=== PATIENT | male | born 1975 | race Caucasian/White ===

== ENCOUNTER 2023-06-06 07:36 | Day surgery (SDC) | payer SELFPAY, OTHER ==
[2023-06-06 08:01] VITALS: BP 117/78; PULSE 61; RESP 16; TEMP 36.3; O2SAT 98; BMI 34.5
[2023-06-06] MEDS: Lactated Ringers 1,000 ML 15 ML IV (08:04)
--- NOTE | 2023-06-06 08:23 | HP.PCM_ITS ---
HPI - General HPI Narrative JOE DIOP, is a 48 M who presents for Left knee arthroscopy partial medial meniscectomy possible repair. No changes to H and P, but patient did go on a new BP medication so I made Dr. Boucher aware. RAB discussed, narcotic counselling, post op protocol for most likely partial meniscectomy. FU in office 2 days. No further questions, L knee marked. OK to proceed. MR#: [id number] Acct: [id number] Name: JOE DIOP Rep #: [id number] : 1975 Provider: Dr. Gabriel Arango MD Age/Sex: 48/M Location: [facility] [place] Status: Signed Intake Vital Signs 05/21/2313:01 Height 5 ft 7 in Weight: 223 lb 8 oz BMI 34.9 Intake Visit Reasons: LEFT KNEE Is patient in pain?: Yes Pain scale (1-10): 6 Allergies No Known Allergies Allergy (Unverified 05/21/23 13:01) Medications NK 05/21/23 [History Confirmed 05/21/23] PFSH Medical History (Updated 05/21/23 @ 13:26 by Gabriel Arango MD) Left knee pain Tear of medial meniscus of left knee Social History (Updated 05/21/23 @ 13:03 by Apoorva Ribeiro) Smoking Status: Never smoker alcohol intake: never what type of physical activity do you participate in: other details: uses a boxing bag HPI LEFT KNEE Details: Parts of this documentation were recorded by a scribe, this documentation accurately reflects the service provided and the decisions made by me, Dr. Gabriel Arango MD 05/21/23 1259. JOE DIOP is a 48 year old M here today for left knee pain, medial side, 6 out of 10, stays there, no radiation, always there, worse with walking, has had 2 cortisone injections and TERRY injection back in November of this year it helped for about 6 months. No surgery. Had xrays on a disc and a MRI. Few years - getting worse. 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 Ortho Exam General General: Yes no acute distress Neurologic: Yes alert and Yes oriented x3 Psychologic: Yes reasonable and appropriate Right Knee Patella Translation: 2 Left Knee Skin/Wound: Yes CDI, No ecchymosis, No erythema and No swelling Knee ROM: Yes ROM-Flexion 0-140 Examination: Yes med jt line tenderness, No Lat jt line tenderness, No TTP inf pole patella, Yes Crepitus, Yes Pain with flexion, Yes Khari's Test, No TTP Patellar tendon, No TTP Tibial tubercle, No TTP Pes Anserine and No Illiotibial band tenderness Quad Atrophy: No Stability: NML: Anterior Drawer, NML: Letha, NML: Posterior Drawer, NML: Valgus 0, NML: Valgus 30, NML: Varus 0 and NML: Varus 30 Apprehension with Lateral Translation: No Patella Translation: 2 Patellar Tilt Normal: Yes Patella Grind: Yes KNEE: normal gait, alignment, nvi normal motor and sens to foot Supplemental Info Radiographs were reviewed from an outside source [facility] 1.5.23 as well as 1.8. overall the joint spaces appear well-maintained no acute abnormalities very early mild narrowing potentially in the medial compartment no other acute abnormalities. MRI was also reviewed left knee without contrast from [facility] November 02, 2022. I agree with radiologist interpretation 1. Posterior horn and mid body medial meniscus tears. 2. Marrow edema of the medial femoral condyle. Otherwise no visible defects of the cartilage. There is narrowing of the lateral patellofemoral joint. Coding Level of Care Code Off vis,new,level 3 Diagnoses Left knee pain M25.562 Tear of medial meniscus of left knee S83.242A Assessment and Plan Assessment and Plan (1) Left knee pain: Status: Acute Plan: 48-year-old man with continued left knee pain despite nonoperative management including 3 injections. MRI shows a medial meniscus tear well-maintained cart ilage as well as slight narrowing of the patellofemoral joint and marrow edema of the medial femoral condyle. More of the pain seems to be coming from the medial joint line rather than the distal femur. The patient can try various nonoperative means of treating this including but not limited to rest ice anti- inflammatories bracing continue nonoperative therapy physical therapy weight loss low impact exercise injections and other means. Surgical option for this can consider knee arthroscopy partial medial meniscectomy possible repair. In terms of the edema medial femoral condyle could consider adjunct therapy of subchondroplasty although for the most part if there is no collapse or irregularity of the joint surface I typically do not perform this as a first step but if he does not respond to smaller intra-articular surgery could consider that as well at a later date. Discussed the pros cons risk benefits of this and the patient would like to go ahead with left knee arthroscopy, medial meniscus partial meniscectomy possible repair. We discussed the recovery for this 1 to 2 weeks on crutches and 6 weeks to return to normal activities. If I did do a repair this would slow down the recovery up to 3 months time the patient may receive incomplete relief of the pain due to the femoral edema. He understands wishes to proceed. I will also get a preoperative clearance from his family doctor as it has been a few years. Pros and cons risks and benefits were discussed with the patient including but not limited to infection, pain, stiffness, bleeding, damage to surrounding stru ctures, neurovascular injury, recurrence or retear, failure or wear of hardware or fixation, instability, fracture, deep vein thrombosis and pulmonary embolism, anesthetic risks, , patient dissatisfaction, need for further surgery and other risks. Patient understood and wished to proceed with surgery, and signed the informed consent documentation. PENDING SALE TO [facility] Medical History (Updated 05/28/23 @ 14:30 by Vanessa Hughes) Hypertension Left knee pain Tear of medial meniscus of left knee Wears glasses Wears hearing aid Home Medications NK 05/21/23 [History Last Taken Unknown] losartan 50 mg tablet mg 06/06/23 [History Last Taken 06/06/23] Allergy/AdvReac Type Severity Reaction Status Date / Time No Known Allergies Allergy Verified 06/06/23 07:55 Surgical History (Updated 05/28/23 @ 14:30 by Vanessa Hughes) No history of previous surgery Social History (Updated 05/21/23 @ 13:03 by Apoorva Ribeiro) Smoking Status: Never smoker alcohol intake: never what type of physical activity do you participate in: other details: uses a boxing bag Vital Signs Vital Signs Vital Signs: 06/06/23 08:01 06/06/23 08:01 Temperature 97.4 F L Temperature Source Temporal Pulse Rate 61 Respiratory Rate 16 Respiratory Pattern Normal Blood Pressure 117/78 Blood Pressure Mean 91 Blood Pressure Source Monitor Blood Pressure Position Semi-Fowlers Blood Pressure Location Left Arm Pulse Ox 98 Oxygen Delivery Method Room Air Weight Weight: 220 lb 7.396 oz Body Mass Index (BMI) 34.5
[2023-06-06] MEDS: Cefazolin 2 GM in 0.9% Normal Saline 100 ML IV (08:51)
[2023-06-06] MEDS: Epinephrine (1 mg/ml) 1 MG/ML VIAL (09:02)
[2023-06-06] MEDS: Bupivacaine 0.25% 30 ML Vial (09:23)
--- NOTE | 2023-06-06 09:26 | OP.PCM_ITS ---
Problems Associated Problem List Diagnoses (1) Tear of medial meniscus of left knee: (2) Left knee pain: Report of Operation Date of Procedure: 06/06/23 Pre-Operative Diagnosis: left knee medial meniscus tear Post-Operative Diagnosis: same Surgery/Procedure Performed:: left knee arthroscopy, debridement, partial medial meniscectomy Surgeon: Gabriel Arango Type of Anesthesia: General and Local Anesthesiologist: Marco A Boucher Estimated Blood Loss (mL): 10 Description of Procedure: Patient brought to the operating room theater. Placed supine on the table. General anesthesia induced. Bony prominences padded. SCD on the nonoperative leg. Ancef 2g IV given for prophylaxis. 34 inch tourniquet applied to the left thigh appropriately padded. Stress positioner to the patient's left side. Lower extremity prepped and draped with chlorhexidine-based prep solution allowing over 3 minutes drying time prior to draping. Preoperative timeout performed to confirm the site patient and the surgery. I began by elevating the limb inflating the tourniquet to 250 mmHg. Use standard anterolateral and anteromedial arthroscopy portals. Did a full diagnostic arthroscopy. No loose bodies. Grade 1 changes mid aspect of trochlea, but otherwise patellofemoral cartilage as well as cartilage on the lateral compartment of the knee was normal, aside from 1 very small 3mm area of grade 3 fissure lateral tibia plateau. Patella sitting normally in the groove. Ligamentum mucosum debrided ACL and PCL appeared normal and stable to probing. Lateral meniscus normal appearance and stable to probing. Removed a medial sided plica. Into the medial compartment there is mild grade 1 changes on the distal femur and proximal tibia as well. Matching with the MRI there was indeed a medial meniscus tear at the mid body to slightly posterior to this. Roots were stable. This was a complex tear which included a radial component. I used shaving instrument to debride the tear to stable margins. Removed about 5% total meniscus area. There was a small peripheral rim remaining with a stable meniscus anterior and posterior to this. Small undersurface fraying at the posterior horn, again debrided gently. Pictures taken and saved throughout the case onto the system. Tourniquet let down. Hemostasis achieved. 10 cc of quarter percent bupivacaine instilled in around the portal sites. Skin cleaned with wet and dry dressing followed application of Steri-Strips Adaptic 4 x 4 gauze ABD dressings and 6 inch Benito bandage loosely wrapped. Patient woken up from the general anesthetic transferred off the operating table taken to postanesthetic care unit in stable condition. All sponge needle instru ment counts were correct no complications. Plan to the patient weightbearing as tolerated with crutches 1 to 2 weeks follow-up in the office in 2 days time. CPT? code 92354 indicates a meniscectomy in either the medial or lateral compartment Complications none Admit VTE Documentation VTE Present on Admission: No VTE Mechan Device Prophylaxis: SCD's VTE Pharm Prophylaxis ordered?: No Reason prophylaxis not ordered:: Treatment Not Indicated Procedures Musculoskeletal [id number]: Other Procedure See Report
[2023-06-06 09:30] VITALS: BP 115/72; BP 117/78; PULSE 60; RESP 16; TEMP 36.3; O2SAT 95
--- NOTE | 2023-06-06 09:30 | DCINST_ITS ---
Discharge Instructions Diet Discharge Diet: No restrictions Activity Discharge Activity: Use Crutches Ice area for (Minutes): 10 Weight Bearing Status: Weight bearing as tolerated Keep extremity elevated above heart level: Operative Extremity Additional Activity Instructions:: WBAT on crutches 1-2 weeks, ROM as tolerated Dressing / Incision Call your doctor if your incision/area has: Continuous Slow Oozing, Sudden Increased Bleeding, Increased Pain/ Swelling, Increased Redness, Foul Smelling Discharge and Swelling at the incision site Change Dressing in: leave in place till F/U Cleanse incision/area with: Do not get Incision Wet Follow Up Care Please Follow Up With: Gabriel Arango MD When: 2 days Test Results: Test results from this visit will be discussed in further detail at your follow- up appointment, if applicable. Discharge Plan Admission Attending Provider: Gabriel Arango Primary Care Provider: Kwasi Bishop Instructions Patient Instructions: After Knee Arthroscopy Discharge Orders/Prescriptions Prescriptions: New oxycodone-acetaminophen [Percocet] 5-325 mg tablet 1 tab PO Q6H MDD 6 PRN (Reason: pain) 5 Days Qty: 14 0RF No Action losartan 50 mg tablet Patient Comments: TAKE ONE TABLET BY MOUTH DAILY Referrals / Follow Up: Kwasi Bishop MD [Primary Care Provider] - Gabriel Arango MD [Med Staff - Active Staff] - Disposition Disposition (needs filled in before D/C Order can be placed): Home, Self Care
[2023-06-06 09:45] VITALS: BP 103/75; BP 117/78; PULSE 65; RESP 16; O2SAT 95
[2023-06-06 10:00] VITALS: BP 105/72; BP 117/78; PULSE 60; RESP 16; O2SAT 94
[2023-06-06 10:09] VITALS: BP 107/74; BP 117/78; PULSE 63; RESP 16; TEMP 36.3; O2SAT 95
[2023-06-06] MEDS: Oxycodone/Apap 5/325 Tablet PO (10:38)
== END 2023-06-06 11:08 | disposition home or self-care (01) ==
LOC: SDC 07:38 → AC 07:39
PROVIDERS: PCP Family Medicine; Referring Provider Orthopaedic Surgery Sports Medicine; Visit Provider Orthopaedic Surgery Sports Medicine
PROC: (CPT 29870; principal; 2023-06-06 08:50)
DX: S83.242A Other tear of medial meniscus, current injury, left knee, initial encounter (principal); I10 Essential (primary) hypertension
CPT/HCPCS: 29881; 01400; J7120; J2405

== ENCOUNTER 2023-07-17 07:00 | Outpatient (RCR) | payer SELFPAY, OTHER ==
--- NOTE | 2023-06-19 07:58 | HP.PTEVAL ---
Patient's Visit Information Visit Information Visit Information: JOE DIOP is a 48 year old M referred to Physical Therapy by Dr. Gabriel Arango MD with a diagnosis of PAIN UN LEFT KNEE. Date of Evaluation: 06/19/23 Physical Therapist: Az Noland, PT, Cert MDT, OCS Visit Plan Frequency: 1-2x /Week Duration: 4 Weeks Plan: PT INTERVTIONS ROM/FLEXABILITY KNEE ,HAMSTRINGS FLEXBLITY ,PRE'S QUADS/HAMS/HIP ,FUNCTIONAL STRENGTHENING AND BIKE /NUSTEP Subjective Subjective: This 48 y/o male presents to physical therapy with left knee partial meniscectomy. Patient underwent surgery on left knee 2 weeks at [facility] Out[facility]. Patient had knee pain for ~ 2years tried injection and gel injection. Patient had MRI showed meniscus tear.,Patient reports getting better. Patient has had showed medial knee DJD and thus pain is medial joint. Aggravating squatting /kneeling ,extended sitting to get up stairs ,extended walking. Alleviating factors rest. Prior to surgery oxycodone. Patient denies paresthesia/tingling. Sleeping good. Patient condition affects QOL and function to include job demands . Goals to have no pain. 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 NEURO: intact AROM: 3 -95 degrees supine flexion STAIRS: one step time descending , MMT: ( peak force) quads 33.6 ,hamstrings 23.7 ,hip flexion 33.8 ,hip abd 28.8 HAMSTRINGS: min tight EDEMA: mild effusion Special Tests L Knee Khari - Meniscus: Negative L Knee Letha - ACL: Negative L Knee Valgus - MCL: Negative L Knee Varus - LCL: Negative L Knee Patellar Apprehension - PFS: Negative L Knee Patellar Grind - PFS: Negative Comments: + hyperflexion tightness Balance/Special Test Scores Lower Extremity Functional Score: 37 Goals Goal 1:: I with HEP for knee Goal Time Frame: 4-6 Weeks Goal 2:: Patient to improve AROM knee flexion 0-125 degrees > to improve stairs Goal Time Frame: 4-6 Weeks Goal 3:: Patient to improve peak force quads/hams/hip by 10# to improve function Goal Time Frame: 4-6 Weeks Goal 4:: Patient to demonstrate 70% improvement with function Goal Time Frame: 4-6 Weeks Goal 5:: Patient improve LFES score by 10 points to improve QOL Goal Time Frame: 4-6 Weeks Rehabilitation Potential Physical Therapy Diagnosis: This patient underwent s/p partial meniscectomy with decrease ROM and strength impairs walking ,stairs and squatting/kneeling thus benefit from skilled PT Rehabilitation Potential: Good Anticipated Interventions Patient/Client Instruction: Educate patient on: Condition and Plan of Care For the Purpose of:: To decrease pain, To decrease swelling/inflammation, To increase ROM, To improve muscle performance and motor function, To increase tolerance to activity/condition/position, To improve ability of physical actions for home/community/work/leisure, To improve health of tissue, To decrease soft tissue restriction, To increase flexibility/ROM, To improve balance and To reduce risk of recurrence Therapeutic Exercise to Include: Strength training, Endurance training, Balance training, Postural training and Active ROM Comment: quads/hams/hip For the Purpose of:: To decrease pain, To increase ROM, To improve muscle performance and motor function, To increase tolerance to activity/condition/position, To improve ability of physical actions for home/community/work/leisure, To improve health of tissue, To decrease soft tissue restriction, To increase flexibility/ROM, To improve endurance and To improve balance TENS: Yes IF ES: Yes Cryotherapy (ice pack, ice massage): Yes Thermo therapy (hot pack): Yes Ultrasound (thermal/non thermal): Yes For the Purpose of:: To decrease pain, To increase ROM, To improve nutrient delivery to tissue, To increase oxygenation perfusion, To improve health of tissue and To decrease soft tissue restriction Text: Thank you for the opportunity to evaluate your patient. For Medicare and Medicare HMO plans, please review the plan of care and approve it. It will need to be FAXED BACK to us at [phone] for Medicare purposes. For Medicare only, by signing this I certify the plan of care. Please let me know if there are questions or concerns regarding this plan of care. Physician Signature: Date:
== END 2023-07-17 19:00 | disposition home or self-care (01) ==
LOC: PT 07:00
PROVIDERS: PCP Family Medicine; Referring Provider Orthopaedic Surgery Sports Medicine; Visit Provider Orthopaedic Surgery Sports Medicine
DX: S83.242D Other tear of medial meniscus, current injury, left knee, subsequent encounter (principal); M25.562 Pain in left knee
CPT/HCPCS: 97110; 97162